=== PATIENT | female | born 1955 | race Caucasian/White ===

== ENCOUNTER → 2024-07-19 | Outpatient (CLI) | payer MEDICARE ==
--- NOTE | 2024-07-19 13:06 | HMCIMG ---
LUMBAR W FLEXION/EXTENSION REASON: LOW BACK PAIN COMPARISON: None TECHNIQUE: 4 views of the lumbar spine are performed including flexion and extension. FINDINGS: There is 3 mm anterior subluxation of L4 on L5. This is stable between neutral, flexion and extension views. Alignment appears otherwise unremarkable. There are normal-appearing vertebral bodies. Interspace heights are preserved. There are no compression fractures. There are some degenerative changes in the facets. IMPRESSION: 1. Mild degenerative changes in the facets. 2. 3 mm anterior subluxation of L4 on L5, stable between flexion and extension views.
== END | disposition home or self-care (01) ==
LOC: RAH 12:01
PROVIDERS: ATTEND Physical Medicine & Rehabilitation
DX: M47.26 Other spondylosis with radiculopathy, lumbar region (principal); M54.2 Cervicalgia; M54.50 Low back pain, unspecified
CPT/HCPCS: 72114

== ENCOUNTER → 2024-07-29 | Outpatient (CLI) | payer MEDICARE ==
--- NOTE | 2024-07-29 14:54 | HMCIMG ---
Cervical spine 2 views History: NECK PAIN Comparison: none FINDINGS: C1 through the top of T1 are seen on the lateral view. The prevertebral soft tissues are normal. No fractures or dislocations are seen. There are spondylytic changes and there are degenerative changes of the facet joints. There is narrowing of the C5-6 and C6-7 discs consistent with degenerative disc disease. The other disc spaces are intact. There is straightening consistent with spasm. Lateral flexion extension views demonstrate no abnormal motion. IMPRESSION: Degenerative changes as noted.
== END | disposition home or self-care (01) ==
LOC: RAH 13:31
PROVIDERS: ATTEND Physical Medicine & Rehabilitation
DX: M47.812 Spondylosis without myelopathy or radiculopathy, cervical region (principal); M54.2 Cervicalgia; M48.02 Spinal stenosis, cervical region
CPT/HCPCS: 72050